=== PATIENT | male | born 1940 | race Caucasian/White ===

== ENCOUNTER 2017-07-01 15:50 | Emergency (ER) | payer MEDICARE, OTHER ==
[2017-07-01] MEDS ORDERED: Aspirin 81 MG Tab.Chew PO ONE (16:25)
--- NOTE | 2017-07-01 16:43 | EDM.PDOC ---
ED HPI GENERAL MEDICAL PROBLEM - General Chief Complaint: Back Pain or Injury Stated Complaint: GENERAL PAINS Time Seen by Provider: 07/01/17 16:10 Source of Information: Reports: Patient History Limitations: Reports: No Limitations - History of Present Illness INITIAL COMMENTS - FREE TEXT/NARRATIVE: Duarte is a 76 year old male who presents to the ER with complaints of lower back pain. He reports that around 1430 this afternoon, while he was sitting at his office desk, he has sudden onset of lower back pain. He was concerned, as he has a heart attack 7 years ago in which his main symptom was back pain. He came to the ER to make sure it wasn't his heart. He describes the pain as sharp, pressure like in nature. He rates the pain a 3/10. He denies any dizziness, lightheadedness, nausea, vomiting, diarrhea, chest pain, shortness of breath, numbness, tingling, dysuria. Does report some urinary frequency. No other associated symptoms. Has not identified any alleviating or aggravating factors. He reports he did take 2 tums prior to ER presentation, but is unsure if that helped at all. He does report a history of back surgery. Denies any numbness or tingling of his extremities. Denies any injury to the back. He reports a history of PA about 7 years ago, in which he had one stent placed. He denies every feeling the typical chest pain with his last PA, rather he reports he had back pain. He reports he takes a baby aspirin daily. He states this feels similar to the last time he has an PA so he just wanted to make sure it wasn't his heart. Onset: Today Onset Date: 07/01/17 Onset Time: 14:30 Duration: Improving Location: Reports: Back Quality: Reports: Ache, Sharp Severity: Mild Improves with: Reports: None Treatments INSOLE TACKER: Reports: Other (see below) Other Treatments INSOLE TACKER: TUMS Bilateral Middle Back Pain Score (Numeric/FACES): 3 - Related Data Allergies Allergy/AdvReac Type Severity Reaction Status Date / Time No Known Allergies Allergy Verified 07/01/17 16:19 Home Meds: Home Meds Aspirin [Children's Aspirin] 81 mg PO DAILY 07/01/17 [History] Clopidogrel Bisulfate [Clopidogrel] 75 mg PO DAILY 07/01/17 [History] Multivitamin [Multi-Day Vitamins] 1 each PO DAILY 07/01/17 [History] [place]-3S/DHA/Epa/Fish Oil [Fish Oil [place]-3 Softgel] 3 each PO DAILY 07/01/17 [ History] Ramipril [Ramipril] 10 mg PO DAILY 07/01/17 [History] atorvaSTATin [Lipitor] 40 mg PO ONETIME 07/01/17 [History] Past Medical History - Past Surgical History Other Musculoskeletal Surgeries/Procedures:: back surgery ED ROS GENERAL - Review of Systems Review Of Systems: See Below Constitutional: Reports: No Symptoms. Denies: Fever, Chills, Weakness, Fatigue , Diaphoresis HEENT: Reports: No Symptoms. Denies: Ear Pain, Rhinitis, Sinus Problem, Vertigo , Vision Change Respiratory: Reports: No Symptoms. Denies: Shortness of Breath, Wheezing, Pleuritic Chest Pain, Cough, Sputum, Hemoptysis Cardiovascular: Denies: Chest Pain, Blood Pressure Problem, Dyspnea on Exertion , Edema, Lightheadedness, Palpitations, Syncope Endocrine: Reports: No Symptoms GI/Abdominal: Reports: No Symptoms. Denies: Abdominal Pain, Anorexia, Black Stool, Bloody Stool, Diarrhea, Decreased Appetite, Difficulty Swallowing, Hematemesis, Hematochezia, Melena, Nausea, Vomiting : Reports: Frequency. Denies: Dysuria, Flank Pain, Hematuria, Urgency, Urinary Retention Musculoskeletal: Reports: Back Pain (lower bilateral back pain, sudden onset) Skin: Reports: No Symptoms. Denies: Diaphoresis, Change in Color Neurological: Reports: No Symptoms. Denies: Confusion, Dizziness, Headache, Numbness, Syncope, Tingling, Weakness, Change in Speech, Gait Disturbance Psychiatric: Reports: No Symptoms Hematologic/Lymphatic: Reports: No Symptoms Immunologic: Reports: No Symptoms ED EXAM, GENERAL - Physical Exam Exam: See Below Exam Limited By: No Limitations General Appearance: Alert, WD/WN, No Apparent Distress Eye Exam: Bilateral Eye: EOMI, Normal Fundi, Normal Inspection, PERRL Head: Atraumatic, Normocephalic Neck: Normal Inspection, Supple, Non-Tender, Full Range of Motion Respiratory/Chest: No Respiratory Distress, Lungs Clear, Normal Breath Sounds, No Accessory Muscle Use, Chest Non-Tender Cardiovascular: Normal Peripheral Pulses, Regular Rate, Rhythm, No Edema, No Gallop, No JVD, No Murmur, No Rub GI/Abdominal: Normal Bowel Sounds, Soft, Non-Tender, No Organomegaly, No Distention, No Abnormal Bruit, No Mass (Male) Exam: Deferred Rectal (Males) Exam: Deferred Back Exam: Normal Inspection, Full Range of Motion. No: CVA Tenderness (L), CVA Tenderness (R), Decreased Range of Motion, Paraspinal Tenderness, Vertebral Tenderness Extremities: Normal Inspection, Normal Range of Motion, Non-Tender, Normal Capillary Refill, No Pedal Edema Neurological: Alert, Oriented, CN II-XII Intact, Normal Cognition, Normal Gait, Normal Reflexes, No Motor/Sensory Deficits Psychiatric: Normal Affect, Normal Mood Skin Exam: Warm, Dry, Intact, Normal Color, No Rash Lymphatic: No Adenopathy EKG INTERPRETATION EKG Date: 07/01/17 Rhythm: NSR [place]: Normal P-Wave: Present QRS: Normal ST-T: Normal QT: Normal Comparison: NA - No Prior EKG Course - Vital Signs Last Recorded V/S: Last Vital Signs Temp 97.6 F 07/01/17 15:58 Pulse 69 07/01/17 15:58 Resp 18 07/01/17 15:58 BP 145/75 H 07/01/17 15:58 Pulse Ox 97 07/01/17 15:58 - Orders/Labs/Meds Orders: Active Orders 24 hr Category Date Time Status EKG Documentation Completion [RC] STAT Care 07/01/17 16:15 Active Chest 2V [CR] Stat Exams 07/01/17 16:25 Taken Labs: Laboratory Tests 07/01/17 07/01/17 07/01/17 Range/Units 16:32 16:32 16:32 WBC 5.4 (5.0-10.0) 10^3/uL RBC 4.45 L (4.50-6.00) 10^6/uL Hgb 13.5 L (14.0-18.0) g/dL Hct 40.2 (40.0-54.0) % MCV 90.3 (82.0-94.0) fL MCH 30.3 (27.0-32.0) pg MCHC 33.6 (33.0-38.0) g/dL RDW Coeff of David 12.5 (11.0-15.0) % Plt Count 207 (150-400) 10^3/uL Neut % (Auto) 48.5 (35-85) % Lymph % (Auto) 33.3 (10-55) % [place] % (Auto) 12.4 (0-16) % Eos % (Auto) 5.4 H (0-5) % Baso % (Auto) 0.4 (0-3) % Neut # (Auto) 2.63 (1.80-7.00) 10^3/uL Lymph # (Auto) 1.80 (1.00-4.80) 10^3/uL [place] # (Auto) 0.67 (0.00-0.80) 10^3/uL Eos # (Auto) 0.29 (0.00-0.45) 10^3/uL Baso # (Auto) 0.02 10^3/uL PT 10.8 (9.7-12.3) SEC INR 1.00 (0.92-1.18) APTT 26.4 (24.5-30.9) SEC Sodium 138 (136-145) mEq/L Potassium 4.1 (3.5-5.0) mEq/L Chloride 102 (98-106) mEq/L Carbon Dioxide 29 (21-32) mmol/L BUN 17 (7-18) mg/dL Creatinine 1.2 (0.7-1.3) mg/dL Est Cr Clr Drug Dosing 60.89 mL/min Estimated GFR (MDRD) 59 L (>=60) mL/min Glucose 100 H (75-99) mg/dL Calcium 9.2 (8.4-10.1) mg/dL Total Bilirubin 0.6 (0.0-1.0) mg/dL AST 81 H (15-37) U/L ALT 116 H (12-78) U/L Alkaline Phosphatase 726 H (46-116) U/L Lactate Dehydrogenase 147 (100-190) U/L Creatine Kinase 130 (35-232) U/L Troponin I < 0.017 (0.00-0.06) ng/mL Total Protein 7.5 (6.4-8.2) g/dL Albumin 3.5 (3.4-5.0) g/dL Urine Color (YELLOW) Urine Appearance (CLEAR) Urine pH (4.5-8.0) Ur Specific [place] (1.003-1.020) Urine Protein (NEGATIVE) mg/dL Urine Glucose (UA) (NEGATIVE) mg/dL Urine Ketones (NEGATIVE) mg/dL Urine Occult Blood (NEGATIVE) Urine Nitrite (NEGATIVE) Urine Bilirubin (NEGATIVE) Urine Urobilinogen (0.2-1.0) EU/dL Ur Leukocyte Esterase (NEGATIVE) Urine RBC (0-5) /HPF Urine WBC (0-5) /HPF 07/01/17 Range/Units 16:50 WBC (5.0-10.0) 10^3/uL RBC (4.50-6.00) 10^6/uL Hgb (14.0-18.0) g/dL Hct (40.0-54.0) % MCV (82.0-94.0) fL MCH (27.0-32.0) pg MCHC (33.0-38.0) g/dL RDW Coeff of David (11.0-15.0) % Plt Count (150-400) 10^3/uL Neut % (Auto) (35-85) % Lymph % (Auto) (10-55) % [place] % (Auto) (0-16) % Eos % (Auto) (0-5) % Baso % (Auto) (0-3) % Neut # (Auto) (1.80-7.00) 10^3/uL Lymph # (Auto) (1.00-4.80) 10^3/uL [place] # (Auto) (0.00-0.80) 10^3/uL Eos # (Auto) (0.00-0.45) 10^3/uL Baso # (Auto) 10^3/uL PT (9.7-12.3) SEC INR (0.92-1.18) APTT (24.5-30.9) SEC Sodium (136-145) mEq/L Potassium (3.5-5.0) mEq/L Chloride (98-106) mEq/L Carbon Dioxide (21-32) mmol/L BUN (7-18) mg/dL Creatinine (0.7-1.3) mg/dL Est Cr Clr Drug Dosing mL/min Estimated GFR (MDRD) (>=60) mL/min Glucose (75-99) mg/dL Calcium (8.4-10.1) mg/dL Total Bilirubin (0.0-1.0) mg/dL AST (15-37) U/L ALT (12-78) U/L Alkaline Phosphatase (46-116) U/L Lactate Dehydrogenase (100-190) U/L Creatine Kinase (35-232) U/L Troponin I (0.00-0.06) ng/mL Total Protein (6.4-8.2) g/dL Albumin (3.4-5.0) g/dL Urine Color Yellow (YELLOW) Urine Appearance Clear (CLEAR) Urine pH 7.0 (4.5-8.0) Ur Specific [place] 1.015 (1.003-1.020) Urine Protein Negative (NEGATIVE) mg/dL Urine Glucose (UA) Negative (NEGATIVE) mg/dL Urine Ketones Negative (NEGATIVE) mg/dL Urine Occult Blood Negative (NEGATIVE) Urine Nitrite Negative (NEGATIVE) Urine Bilirubin Negative (NEGATIVE) Urine Urobilinogen 0.2 (0.2-1.0) EU/dL Ur Leukocyte Esterase Negative (NEGATIVE) Urine RBC Not seen (0-5) /HPF Urine WBC Not seen (0-5) /HPF Meds: Medications Discontinued Medications Generic Name Dose Route Start Last Admin Trade Name Freq PRN Reason Stop Dose Admin Aspirin 324 mg 07/01/17 16:25 07/01/17 16:25 Aspirin PO 07/01/17 16:26 324 mg ONETIME ONE Administration - Re-Assessments/Exams Free Text/Narrative Re-Assessment/Exam: Discussed labs, CXR, and EKG findings with patient. All labs normal, except liver enzymes and alkaline phosphatase which are chronically elevated. Patient has been following with GI at [facility] in [place] for this. He currently denies any abdominal pain, N/V/D. He does not appear jaundice. He reports he has had multiple labs and procedures done in the past to determine what is going on with his liver but they are still unsure. Hepatitis panels have all been negative in the past. Patient reports pain has pretty much resolved and he is relieved to know it is not his heart. Departure - Departure Time of Disposition: 17:33 Disposition: Home, Self-Care 01 Condition: Good Clinical Impression: Elevated liver enzymes Back pain Qualifiers: Back pain location: low back pain Chronicity: acute Back pain laterality: bilateral Sciatica presence: without sciatica Qualified Code(s): M54.5 - Low back pain Instructions: Liver Function Tests Referrals: Yohana Dhillon SLAB TRIPPER [Emergency Provider] - Forms: ED Department Discharge Additional Instructions: Follow up in clinic in 1 week Return to ER or notify provider if onset of nausea, vomiting, worsening pain, fever, or chills - My Orders Last 24 Hours: My Active Orders 07/01/17 16:15 EKG Documentation Completion [RC] STAT 07/01/17 16:25 Chest 2V [CR] Stat - Assessment/Plan Last 24 Hours: My Active Orders 07/01/17 16:15 EKG Documentation Completion [RC] STAT 07/01/17 16:25 Chest 2V [CR] Stat
[2017-07-01 16:52] LABS: CHLORIDE,CL 102 mEq/L (98-106); SODIUM,NA 138 mEq/L (136-145)
== END 2017-07-01 18:05 | disposition home or self-care (01) ==
LOC: CC.ED 15:50
DX: M54.5 Low back pain (principal); R74.8 Abnormal levels of other serum enzymes; Z79.82 Long term (current) use of aspirin; Z79.02 Long term (current) use of antithrombotics/antiplatelets; Z79.899 Other long term (current) drug therapy; Z98.890 Other specified postprocedural states
CPT/HCPCS: 36415; 71020; 80053; 81001; 82550; 83615; 84484; 85025; 85610; 85730; 93005; 99284; A9270; 93010

== ENCOUNTER 2018-06-12 20:20 | Emergency (ER) | payer MEDICARE, OTHER ==
--- NOTE | 2018-06-12 20:47 | EDM.PDOC ---
ED HPI GENERAL MEDICAL PROBLEM - General Chief Complaint: General Stated Complaint: bleeding from mouth Time Seen by Provider: 06/12/18 20:30 Source of Information: Reports: Patient History Limitations: Reports: No Limitations - History of Present Illness INITIAL COMMENTS - FREE TEXT/NARRATIVE: approximately 15:30 noted some blood from mouth then it quit. About 17:30 noted that it started again and it would not stop. Tried to put pressure on it with paper towel but it didn't quit. Came into ER at about 2000 and it was still bleeding. Denies any trauma to the area. Denies scraping the area with anything. Did have dental check up about 2 weeks ago and all was good. Denies any pain or pain to teeth. When I arrived he has been biting on piece of gauze and bleeding has stopped at this time. Onset: Sudden Location: Reports: Other Associated Symptoms: Reports: No Other Symptoms - Related Data Allergies Allergy/AdvReac Type Severity Reaction Status Date / Time No Known Allergies Allergy Verified 06/12/18 20:27 Home Meds: Home Meds Aspirin [Children's Aspirin] 81 mg PO DAILY 07/01/17 [History] Clopidogrel Bisulfate [Clopidogrel] 75 mg PO DAILY 07/01/17 [History] Multivitamin [Multi-Day Vitamins] 1 each PO DAILY 07/01/17 [History] [place]-3S/DHA/Epa/Fish Oil [Fish Oil [place]-3 Softgel] 3 each PO DAILY 07/01/17 [ History] Ramipril 10 mg PO DAILY 07/01/17 [History] Rosuvastatin [Crestor] 10 mg PO DAILY 06/12/18 [History] Past Medical History HEENT History: Reports: Impaired Vision, Other (See Below) Other HEENT History: GLASSES Cardiovascular History: Reports: SD, Stents Musculoskeletal History: Reports: Arthritis Oncologic (Cancer) History: Reports: Basal Cell Carcinoma, Prostate - Past Surgical History Cardiovascular Surgical History: Reports: Coronary Artery Stent GI Surgical History: Reports: ERCP Male Surgical History: Reports: Prostatectomy Other Musculoskeletal Surgeries/Procedures:: back surgery Social & Family History - Family History Family Medical History: Noncontributory - Tobacco Use Smoking Status *Q: Never Smoker - Caffeine Use Caffeine Use: Reports: None ED ROS GENERAL - Review of Systems Review Of Systems: See Below Constitutional: Reports: No Symptoms HEENT: Reports: Other (bleeding from mouth) Respiratory: Reports: No Symptoms Cardiovascular: Reports: No Symptoms ED EXAM, GENERAL - Physical Exam Exam: See Below Exam Limited By: No Limitations General Appearance: Alert, WD/WN, No Apparent Distress Throat/Mouth: Normal Inspection, Other (behind the front two teeth he has blood noted that is now stopped. There is no active bleeding noted. Can see where the bleeding had been. Teeth are not lose and he states that it is a bridge. No other bleeding noted.) Neurological: Alert, Oriented Psychiatric: Normal Affect Skin Exam: Warm, Dry, Intact Course - Vital Signs Last Recorded V/S: Last Vital Signs Temp 98.1 F 06/12/18 20:31 Pulse 74 06/12/18 20:31 Resp 18 06/12/18 20:31 BP 140/72 06/12/18 20:31 Pulse Ox 96 06/12/18 20:31 Departure - Departure Time of Disposition: 20:47 Disposition: Home, Self-Care 01 Condition: Good Clinical Impression: Gums, bleeding - Discharge Information *PRESCRIPTION DRUG MONITORING PROGRAM REVIEWED*: No *COPY OF PRESCRIPTION DRUG MONITORING REPORT IN PATIENT BILLY: No Instructions: Gingivitis Referrals: Chapo Barajas MD [Primary Care Provider] - Forms: ED Department Discharge Additional Instructions: continue to apply pressure to teeth by biting on the gauze. Drink cold fluids or suck on ice. Do not eat anything tonight that requires you to take a bite Need to visit with dentist as the bleeding is coming from gums under bridge - Problem List & Annotations (1) Gums, bleeding SNOMED Code(s): 02840029 Code(s): K06.8 - OT DISRD OF GINGIVA AND EDENTULOUS ALVEOLAR RIDGE Status : Acute Priority: High Current Visit: Yes - Problem List Review Problem List Initiated/Reviewed/Updated: Yes
== END 2018-06-12 20:55 | disposition home or self-care (01) ==
LOC: CC.ED 20:20
DX: K06.8 Other specified disorders of gingiva and edentulous alveolar ridge (principal); I25.2 Old myocardial infarction; Z79.899 Other long term (current) drug therapy; Z79.82 Long term (current) use of aspirin; Z95.5 Presence of coronary angioplasty implant and graft
CPT/HCPCS: 99282; 99283

== ENCOUNTER 2021-12-26 17:22 | Emergency (ER) | payer MEDICARE, OTHER ==
[2021-12-26] MEDS ORDERED: Dexamethasone 4 MG/ML SDV IM ONE (21:02)
[2021-12-26] MEDS ORDERED: Ketorolac 30 MG/ML SDV IM ONE (21:10)
== END 2021-12-26 22:05 | disposition home or self-care (01) ==
LOC: CC.ED 17:22
DX: M25.532 Pain in left wrist (principal); I25.2 Old myocardial infarction; Z95.5 Presence of coronary angioplasty implant and graft; Z79.82 Long term (current) use of aspirin; Z79.02 Long term (current) use of antithrombotics/antiplatelets; Z79.899 Other long term (current) drug therapy
CPT/HCPCS: 73110-LT; 73130-LT; 96372; 99283; J1100; J1885